=== PATIENT | female | born 1960 | race Caucasian/White ===

== ENCOUNTER 2018-05-25 09:40 | Inpatient (IN) | payer MEDICAID ==
[2018-05-18 11:03] LABS: BASOPHILS % (AUTO) 0.4 % (0-1); EOSINOPHILS # (AUTO) 0.2 X10'3 (0-0.9); EOSINOPHILS % (AUTO) 2.3 % (0-6); LYMPHOCYTES # (AUTO) 1.9 X10'3 (1.1-4.8); LYMPHOCYTES % (AUTO) 23.8 % (21-51); MEAN CORPUSCULAR HEMOGLOBIN 32.6 PG (27.0-31.0); MEAN CORPUSCULAR HGB CONC 34.2 % (33.0-36.5); MEAN CORPUSCULAR VOLUME 95.2 FL (78-98); MONOCYTES # (AUTO) 0.5 X10'3 (0-0.9); MONOCYTES % (AUTO) 6.8 % (2-12); NEUTROPHILS # (AUTO) 5.3 X10'3 (1.8-7.7); NEUTROPHILS % (AUTO) 66.7 % (42-75); PRE OP HEMATOCRIT 40.5 % (35.0-45.0); PRE OP HEMOGLOBIN 13.8 g/dL (12.0-16.0); PRE OP PLATELET COUNT 299 X10'3 (140-440); RED BLOOD COUNT 4.25 X10'6 (4.20-5.60); RED CELL DISTRIBUTION WIDTH 13.7 % (11.5-14.5)
[2018-05-18 11:03] LABS: CLARITY,URINE SLIGHTLY CLOUDY (Clear); COLOR,URINE YELLOW (Yellow); GLUCOSE, URINE NEGATIVE (Neg); KETONES,URINE NEGATIVE (Neg); LEUKOCYTE ESTERASE ,URINE MODERATE (Neg); NITRITES, URINE POSITIVE (Neg); OCCULT BLOOD,URINE LARGE (Neg); PROTEIN,URINE NEGATIVE (Neg); UROBILINOGEN,URINE 0.2 E.U/dL (0.2-1.0)
[2018-05-18 11:06] LABS: UA COLLECTION TYPE OTHER
[2018-05-18 11:08] LABS: WBC,URINE 50-100 /HPF (0-4)
[2018-05-18 11:09] LABS: BACTERIA,URINE 4+ /HPF (Neg); SQUAMOUS EPITHELIAL CELL,UR FEW /LPF (FEW)
[2018-05-18 11:15] LABS: ALBUMIN/GLOBULIN RATIO 1.2 (1.1-1.5); ALKALINE PHOSPHATASE 130 IU/L (46-116); BLOOD UREA NITROGEN 24 MG/DL (7-18); BUN/CREATININE RATIO 31.2 (6.6-38.0); CALCIUM 9.2 MG/DL (8.5-10.1); CHLORIDE 106 MMOL/L (99-107); CREATININE 0.77 MG/DL (0.40-0.90); PRE OP ALT 25 U/L (30-65); PRE OP ANION GAP 7 (8-16); PRE OP AST 17 U/L (10-37); PRE OP BILIRUB, TOTAL 0.3 MG/DL (0.0-1.0); PRE OP GLUCOSE 90 MG/DL (70-104); PRE OP POTASSIUM 4.4 MMOL/L (3.4-5.1); PRE OP SODIUM 143 MMOL/L (135-145); TOTAL CARBON DIOXIDE 30.2 MMOL/L (24-32); TOTAL PROTEIN 7.3 G/DL (6.4-8.2); eGFR 77 ML/MIN
[~2018-05-25] VITALS: Ht 157.5 cm; Wt 87.5 kg
[2018-05-25] VITALS (18 sets, daily range): BP systolic 88–127; BP diastolic 50–91
[2018-05-25] MEDS: potassium cl 20mEq in 1/2 NS 1,000 ML IV SCH ×2 (07:16→15:16)
[2018-05-25] MEDS: citalopram 20mg tablet PO SCH (08:00)
[2018-05-25] MEDS: morphine ER 15mg tablet PO SCH ×2 (08:00→20:07)
[2018-05-25] MEDS: acetaminophen 325mg tablet PO SCH ×3 (08:00→20:08)
[2018-05-25] MEDS: baclofen 10mg tablet PO SCH ×3 (08:00→20:07)
[2018-05-25] MEDS: multivitamins, therapeutics tablet PO SCH (08:00)
[2018-05-25] MEDS: gabapentin 300mg capsule PO SCH ×3 (08:00→20:07)
[~2018-05-25 09:40] MED LIST: ATOR20TA PO; BACL20TA11 PO; Cefazolin 2GM/50ML dext iso,osmotic IVPB IV ONE; ENAL5TAB PO; ESCI20TA38 PO; HYDROmorphone 1 mg/ml syringe IV PRN; MELO-102 PO; OXYC10TA47 PO; VANCOMYCIN INJ 1000 MG in NORMAL SALINE 250ml IV.SOLN IV ONE; ZOLP10TA5 PO; ZOLPIDEM TARTRATE 5 MG PO SCH; acetaminophen 325mg tablet PO ONE; acetaminophen 325mg tablet PO PRN; bisacodyl 10mg suppository rectal RC PRN; celeCOXIB 100mg capsule PO ONE; diphenhydrAMINE 25mg capsule PO PRN; famotidine 20mg tablet PO ONE; gabapentin 300mg capsule PO ONE; magnesium hydroxide 30ml (MOM) UD suspension PO PRN; metoclopramide 5 mg/ml inj IV ONE; ondansetron/PF 4mg/2ml inj IV PRN; oxyCODONE IR 5mg (immed. release) tablet PO PRN; oxyCODONE SR 10mg (sust. release) tab PO ONE; ringers solution, lacted 1,000 ML IV SCH
[2018-05-25] MEDS ORDERED: fentaNYL/PF 50MCG/1 ML 2ML syringe ONE (13:29)
[2018-05-25] MEDS ORDERED: MIDAZolam 5mg/5ml vial ONE (13:29)
[2018-05-25] MEDS ORDERED: morphine sulfate /PF 0.5 MG/ML 10mL ampul ONE (13:29)
[2018-05-25] MEDS ORDERED: tetracaine 1% (10mg/ml) pres. free inj. ONE (13:30)
[2018-05-25] MEDS ORDERED: tranexamic acid inj. 1,000 MG in normal saline 100ml IV soln 90 ML IV ONE (14:00)
[2018-05-25] MEDS ORDERED: ROPIVAcaine inj 250 MG, epiNEPHrine inj 0.5 MG, CloNIDine/PF inj 80 MCG in normal salin... SQ ONE (14:05)
[2018-05-25] MEDS ORDERED: ketorolac trometh. 30mg/ml inj. ONE (14:45)
[2018-05-25] MEDS ORDERED: vancomycin 1,000mg inj ONE (14:46)
[2018-05-25] MEDS ORDERED: ePHEDrine 50MG/ML INJ. ONE (15:02)
[2018-05-25] MEDS ORDERED: diphenhydrAMINE 50 mg/ml inj ONE (15:02)
[2018-05-25] MEDS ORDERED: phenylephrine 10mg/ml inj. ONE (15:02)
[2018-05-25] MEDS ORDERED: LIDOcaine 1%/PF 5ML 10 MG/ML VIAL ONE (15:02)
[2018-05-25] MEDS ORDERED: propofol inj 20 ML IV ONE (15:02)
[2018-05-25] MEDS ORDERED: diphenhydrAMINE 50 mg/ml inj IV PRN (15:20)
[2018-05-25] MEDS ORDERED: meperidine/PF 25mg/ml syringe IV PRN ×3 (15:20)
[2018-05-25] MEDS ORDERED: naloxone 2mg/2ml inj 1.7 MG in normal saline 500ml IV soln 500 ML IV PRN (15:20)
[2018-05-25] MEDS ORDERED: ondansetron/PF 4mg/2ml inj IV PRN ×2 (15:20)
[2018-05-25] MEDS ORDERED: proCHLORperazine 10 MG/2 ml inj IV PRN (15:20)
[2018-05-25] MEDS ORDERED: morphine 4 MG/ML inj SYRINge IV PRN ×3 (15:20→16:17)
[2018-05-25] MEDS ORDERED: ringers solution, lacted 1,000 ML IV SCH (15:20)
[2018-05-25] MEDS ORDERED: morphine 2 MG/ML inj. syringe IV PRN (16:16)
[2018-05-25] MEDS: atorvastatin 20mg tablet PO SCH (20:07)
[2018-05-25] MEDS: sennosides 8.6mg tablet PO SCH (20:07)
[2018-05-25] MEDS: ascorbic acid 500mg tablet PO SCH (20:07)
[2018-05-25] MEDS: zolpidem 5mg tablet PO PRN (21:10)
[2018-05-25] MEDS: cefazolin/dext.iso 2gm/50ml 50 ML IV SCH (21:11)
[2018-05-26 02:00] VITALS: BP 91/61
[2018-05-26] MEDS: cefazolin/dext.iso 2gm/50ml 50 ML IV SCH (02:00)
[2018-05-26] MEDS: acetaminophen 325mg tablet PO SCH ×4 (02:01→19:52)
[2018-05-26] MEDS: oxyCODONE IR 5mg (immed. release) tablet PO PRN ×5 (02:04→21:29)
[2018-05-26] MEDS: baclofen 10mg tablet PO SCH ×4 (02:04→19:51)
[2018-05-26] MEDS: potassium cl 20mEq in 1/2 NS 1,000 ML IV SCH ×4 (02:16→23:16)
[2018-05-26 06:00] VITALS: BP 94/59
[2018-05-26 06:57] LABS: BASOPHILS % (AUTO) 0.4 % (0-1); EOSINOPHILS # (AUTO) 0.2 X10'3 (0-0.9); EOSINOPHILS % (AUTO) 3.4 % (0-6); HEMATOCRIT 30.4 % (35.0-45.0); HEMOGLOBIN 10.6 g/dl (12.0-16.0); LYMPHOCYTES # (AUTO) 1.3 X10'3 (1.1-4.8); LYMPHOCYTES % (AUTO) 20.5 % (21-51); MEAN CORPUSCULAR HEMOGLOBIN 32.9 PG (27.0-31.0); MEAN CORPUSCULAR HGB CONC 34.9 % (33.0-36.5); MEAN CORPUSCULAR VOLUME 94.4 FL (78-98); MEAN PLATELET VOLUME 8.5 FL (7.4-10.4); MONOCYTES # (AUTO) 0.6 X10'3 (0-0.9); NEUTROPHILS # (AUTO) 4.3 X10'3 (1.8-7.7); NEUTROPHILS % (AUTO) 66.7 % (42-75); PLATELET COUNT 211 X10'3 (140-440); RED BLOOD COUNT 3.22 X10'6 (4.20-5.60); RED CELL DISTRIBUTION WIDTH 12.7 % (11.5-14.5); WHITE BLOOD COUNT 6.4 X10'3 (4.5-11.0)
[2018-05-26 07:16] LABS: ANION GAP 8 (8-16); CHLORIDE 110 MMOL/L (99-107); POTASSIUM 4.1 MMOL/L (3.5-5.1); SODIUM 146 MMOL/L (135-145); TOTAL CARBON DIOXIDE 27.9 MMOL/L (24-32)
[2018-05-26] MEDS: aspirin 325mg tablet PO SCH (07:41)
[2018-05-26] MEDS: citalopram 20mg tablet PO SCH (07:41)
[2018-05-26] MEDS: morphine ER 15mg tablet PO SCH ×2 (07:42→19:51)
[2018-05-26] MEDS: ascorbic acid 500mg tablet PO SCH ×2 (07:43→19:51)
[2018-05-26] MEDS: multivitamins, therapeutics tablet PO SCH (07:43)
[2018-05-26] MEDS: gabapentin 300mg capsule PO SCH ×3 (07:43→19:51)
[2018-05-26] MEDS: lisinopril 5mg tablet PO SCH (07:57)
[2018-05-26 10:00] VITALS: BP 97/63
[2018-05-26 18:03] VITALS: BP 114/71
[2018-05-26] MEDS: atorvastatin 20mg tablet PO SCH (19:51)
[2018-05-26] MEDS: sennosides 8.6mg tablet PO SCH (19:52)
[2018-05-26] MEDS: zolpidem 5mg tablet PO PRN (21:29)
[2018-05-26 22:00] VITALS: BP 95/57
[2018-05-27] MEDS: oxyCODONE IR 5mg (immed. release) tablet PO PRN ×4 (02:25→13:47)
[2018-05-27] MEDS: baclofen 10mg tablet PO SCH ×4 (02:25→20:15)
[2018-05-27] MEDS: acetaminophen 325mg tablet PO SCH (02:25)
[2018-05-27 06:00] VITALS: BP 99/58
[2018-05-27 06:00] LABS: BASOPHILS % (AUTO) 0 % (0-1); EOSINOPHILS # (AUTO) 0.3 X10'3 (0-0.9); EOSINOPHILS % (AUTO) 3.4 % (0-6); HEMATOCRIT 29.2 % (35.0-45.0); LYMPHOCYTES # (AUTO) 1.3 X10'3 (1.1-4.8); LYMPHOCYTES % (AUTO) 12.3 % (21-51); MEAN CORPUSCULAR HEMOGLOBIN 32.5 PG (27.0-31.0); MEAN CORPUSCULAR HGB CONC 34.4 % (33.0-36.5); MEAN CORPUSCULAR VOLUME 94.2 FL (78-98); MONOCYTES # (AUTO) 0.9 X10'3 (0-0.9); MONOCYTES % (AUTO) 8.5 % (2-12); NEUTROPHILS # (AUTO) 7.8 X10'3 (1.8-7.7); NEUTROPHILS % (AUTO) 75.8 % (42-75); PLATELET COUNT 218 X10'3 (140-440); RED BLOOD COUNT 3.09 X10'6 (4.20-5.60); RED CELL DISTRIBUTION WIDTH 12.9 % (11.5-14.5); WHITE BLOOD COUNT 10.3 X10'3 (4.5-11.0)
[2018-05-27] MEDS: lisinopril 5mg tablet PO SCH (07:47)
[2018-05-27] MEDS: citalopram 20mg tablet PO SCH (07:50)
[2018-05-27] MEDS: aspirin 325mg tablet PO SCH (07:50)
[2018-05-27] MEDS: morphine ER 15mg tablet PO SCH ×2 (07:50→20:15)
[2018-05-27] MEDS: multivitamins, therapeutics tablet PO SCH (07:50)
[2018-05-27] MEDS: ascorbic acid 500mg tablet PO SCH ×2 (07:50→20:15)
[2018-05-27] MEDS: gabapentin 300mg capsule PO SCH ×3 (07:50→20:15)
[2018-05-27 10:00] VITALS: BP 129/75
[2018-05-27] MEDS ORDERED: oxyCODONE/APAP 10/325mg tablet PO PRN (15:50)
[2018-05-27] MEDS: oxyCODONE/APAP 10/325mg tablet PO PRN ×2 (17:03→23:33)
[2018-05-27 18:00] VITALS: BP 139/71
[2018-05-27] MEDS: sennosides 8.6mg tablet PO SCH (20:14)
[2018-05-27] MEDS: atorvastatin 20mg tablet PO SCH (20:14)
[2018-05-27] MEDS: zolpidem 5mg tablet PO PRN (20:18)
[2018-05-27 22:00] VITALS: BP 113/59
[2018-05-28] MEDS: baclofen 10mg tablet PO SCH ×4 (02:13→20:58)
[2018-05-28] MEDS: oxyCODONE/APAP 10/325mg tablet PO PRN ×4 (03:21→16:48)
[2018-05-28 06:00] VITALS: BP 101/64
[2018-05-28] MEDS: citalopram 20mg tablet PO SCH (07:15)
[2018-05-28] MEDS: gabapentin 300mg capsule PO SCH ×3 (07:15→20:57)
[2018-05-28] MEDS: multivitamins, therapeutics tablet PO SCH (07:15)
[2018-05-28] MEDS: morphine ER 15mg tablet PO SCH ×2 (07:15→21:00)
[2018-05-28] MEDS: ascorbic acid 500mg tablet PO SCH ×2 (07:16→20:58)
[2018-05-28] MEDS: lisinopril 5mg tablet PO SCH (08:00)
[2018-05-28 08:09] LABS: WHITE BLOOD COUNT 10.2 X10'3 (4.5-11.0)
[2018-05-28 08:10] LABS: BASOPHILS % (AUTO) 0.4 % (0-1); EOSINOPHILS # (AUTO) 0.5 X10'3 (0-0.9); EOSINOPHILS % (AUTO) 4.9 % (0-6); HEMATOCRIT 31.5 % (35.0-45.0); HEMOGLOBIN 10.8 g/dl (12.0-16.0); LYMPHOCYTES % (AUTO) 19.9 % (21-51); MEAN CORPUSCULAR HEMOGLOBIN 32.6 PG (27.0-31.0); MEAN CORPUSCULAR HGB CONC 34.1 % (33.0-36.5); MEAN CORPUSCULAR VOLUME 95.5 FL (78-98); MEAN PLATELET VOLUME 8.2 FL (7.4-10.4); MONOCYTES # (AUTO) 0.9 X10'3 (0-0.9); MONOCYTES % (AUTO) 8.5 % (2-12); NEUTROPHILS # (AUTO) 6.8 X10'3 (1.8-7.7); NEUTROPHILS % (AUTO) 66.3 % (42-75); PLATELET COUNT 242 X10'3 (140-440); RED CELL DISTRIBUTION WIDTH 12.9 % (11.5-14.5)
[2018-05-28 10:00] VITALS: BP 97/60
[2018-05-28] MEDS: aspirin 325mg tablet PO SCH (12:22)
[2018-05-28 18:00] VITALS: BP 102/58
[2018-05-28] MEDS: atorvastatin 20mg tablet PO SCH (20:58)
[2018-05-28] MEDS: sennosides 8.6mg tablet PO SCH (20:58)
[2018-05-28] MEDS: zolpidem 5mg tablet PO PRN (21:48)
[2018-05-28 22:00] VITALS: BP 109/61
[2018-05-29] MEDS: oxyCODONE/APAP 10/325mg tablet PO PRN ×3 (00:21→10:31)
[2018-05-29] MEDS: baclofen 10mg tablet PO SCH ×2 (01:59→07:35)
[2018-05-29 06:00] VITALS: BP 103/64
[2018-05-29] MEDS: citalopram 20mg tablet PO SCH (07:35)
[2018-05-29] MEDS: lisinopril 5mg tablet PO SCH (07:36)
[2018-05-29] MEDS: multivitamins, therapeutics tablet PO SCH (07:36)
[2018-05-29] MEDS: aspirin 325mg tablet PO SCH (07:36)
[2018-05-29] MEDS: morphine ER 15mg tablet PO SCH (07:36)
[2018-05-29] MEDS: ascorbic acid 500mg tablet PO SCH (07:36)
[2018-05-29] MEDS: gabapentin 300mg capsule PO SCH (07:36)
== END 2018-05-29 11:10 | DRG 301 ==
LOC: PAS IN 11:19 → EDSTATUS 15:30 → ORTHO 4S 17:00
PROVIDERS: ADMIT Orthopaedic Surgery; ATTEND Orthopaedic Surgery
PROC: 0SR906Z Replacement of Right Hip Joint with Oxidized Zirconium on Polyethylene Synthetic Substitute, Open Approach (ICD-10-PCS; principal; 2018-05-25 13:34)
DX: M16.11 Unilateral primary osteoarthritis, right hip (principal); E66.9 Obesity, unspecified; I10 Essential (primary) hypertension; E78.5 Hyperlipidemia, unspecified; N39.0 Urinary tract infection, site not specified; B95.2 Enterococcus as the cause of diseases classified elsewhere; F32.9 Major depressive disorder, single episode, unspecified; D62 Acute posthemorrhagic anemia; Z88.6 Allergy status to analgesic agent; Z79.899 Other long term (current) drug therapy; Z79.82 Long term (current) use of aspirin; Z68.35 Body mass index [BMI] 35.0-35.9, adult
CPT/HCPCS: 36415; 71046; 72170; 80051; 80053; 81001; 85025; 85610; 85730; 86885; 86900; 86901; 87070; 87077; 87088; 87186; 97110; 97116; 97162; 97530; A4615; A6258; A7000; A9272; C1758; C1776; J0171; J0690; J0735; J1170; J1200; J1885; J2001; J2250; J2270; J2274; J2370; J2704; J2765; J2795; J3010; J3370; J7030; J7120; Q0163

== ENCOUNTER 2019-08-31 22:03 | Emergency (ER) | payer MEDICAID ==
[~2019-08-31] VITALS: Ht 157.5 cm; Wt 99.8 kg
[~2019-08-31 22:03] MED LIST changes: -Cefazolin 2GM/50ML dext iso,osmotic IVPB IV ONE; -HYDROmorphone 1 mg/ml syringe IV PRN; -VANCOMYCIN INJ 1000 MG in NORMAL SALINE 250ml IV.SOLN IV ONE; -ZOLPIDEM TARTRATE 5 MG PO SCH; -acetaminophen 325mg tablet PO ONE; -acetaminophen 325mg tablet PO PRN; -bisacodyl 10mg suppository rectal RC PRN; -celeCOXIB 100mg capsule PO ONE; -diphenhydrAMINE 25mg capsule PO PRN; -famotidine 20mg tablet PO ONE; -gabapentin 300mg capsule PO ONE; -magnesium hydroxide 30ml (MOM) UD suspension PO PRN; -metoclopramide 5 mg/ml inj IV ONE; -ondansetron/PF 4mg/2ml inj IV PRN; -oxyCODONE IR 5mg (immed. release) tablet PO PRN; -oxyCODONE SR 10mg (sust. release) tab PO ONE; -ringers solution, lacted 1,000 ML IV SCH
[2019-08-31] MEDS ORDERED: ONDA8TAB6 PO (22:42)
[2019-08-31] MEDS ORDERED: SENN-162 PO (22:42)
[2019-08-31] MEDS ORDERED: GABA-532 PO (22:42)
[2019-08-31] MEDS ORDERED: ASPI-1264 PO (22:42)
[2019-08-31] MEDS ORDERED: ondansetron 4mg rapidly disintigrating tab PO ONE (22:50)
[2019-09-01 00:38] VITALS: BP 107/68
== END 2019-09-01 00:42 | disposition home or self-care (01) ==
LOC: ER 22:04
DX: R20.0 Anesthesia of skin (principal); T43.215A Adverse effect of selective serotonin and norepinephrine reuptake inhibitors, initial encounter; T50.995A Adverse effect of other drugs, medicaments and biological substances, initial encounter; R11.0 Nausea; Y92.89 Other specified places as the place of occurrence of the external cause; Z88.5 Allergy status to narcotic agent; Z79.82 Long term (current) use of aspirin; Z79.899 Other long term (current) drug therapy
CPT/HCPCS: 99282

== ENCOUNTER 2023-02-08 16:06 | Emergency (ER) | payer MEDICAID ==
[~2023-02-08] VITALS: Ht 162.6 cm; Wt 93.2 kg
[~2023-02-08 16:06] MED LIST changes: +ASPI-1264 PO; +ENAL-76 PO; -ENAL5TAB PO; -ESCI20TA38 PO; +ESCI20TA39 PO; +GABA-532 PO; +ONDA8TAB6 PO; +SENN-263 PO
[2023-02-08 17:01] LABS: CLARITY,URINE SLIGHTLY CLOUDY (Clear); COLOR,URINE YELLOW (Yellow); GLUCOSE, URINE NEGATIVE (Neg); KETONES,URINE NEGATIVE (Neg); LEUKOCYTE ESTERASE ,URINE NEGATIVE (Neg); NITRITES, URINE NEGATIVE (Neg); OCCULT BLOOD,URINE SMALL (Neg); PROTEIN,URINE NEGATIVE (Neg); UROBILINOGEN,URINE 0.2 E.U/dL (0.2-1.0)
[2023-02-08 17:03] LABS: UA COLLECTION TYPE CLN CATCH MIDSTREAM
[2023-02-08 17:08] LABS: URINE AMPHETAMINE SCREEN NEGATIVE (Neg); URINE BARBITUATE SCREEN NEGATIVE (Neg); URINE BENZODIAZEPINES SCREEN NEGATIVE (Neg); URINE CANNABINOID SCREEN POSITIVE (Neg); URINE COCAINE SCREEN NEGATIVE (Neg); URINE METHADONE SCREEN NEGATIVE (Neg); URINE OPIATE SCREEN POSITIVE (Neg); URINE PHENCYCLIDINE SCREEN NEGATIVE (Neg)
[2023-02-08 17:09] LABS: MUCUS STRANDS MODERATE /LPF (Neg); SQUAMOUS EPITHELIAL CELL,UR FEW /LPF (FEW)
[2023-02-08 17:13] LABS: BACTERIA,URINE FEW /HPF (Neg); WBC,URINE 0-4 /HPF (0-4)
[2023-02-08 17:24] LABS: BASOPHILS % (AUTO) 0.4 % (0-1); EOSINOPHILS # (AUTO) 0.3 X10'3 (0-0.9); EOSINOPHILS % (AUTO) 2.8 % (0-6); HEMATOCRIT 38.6 % (35.0-45.0); HEMOGLOBIN 13.3 g/dl (12.0-16.0); LYMPHOCYTES # (AUTO) 1.9 X10'3 (1.1-4.8); LYMPHOCYTES % (AUTO) 21.1 % (21-51); MEAN CORPUSCULAR HEMOGLOBIN 32.8 PG (27.0-31.0); MEAN CORPUSCULAR HGB CONC 34.5 g/dL (33.0-36.5); MEAN PLATELET VOLUME 7.7 FL (7.4-10.4); MONOCYTES # (AUTO) 0.6 X10'3 (0-0.9); MONOCYTES % (AUTO) 7.1 % (2-12); NEUTROPHILS # (AUTO) 6.2 X10'3 (1.8-7.7); NEUTROPHILS % (AUTO) 68.6 % (42-75); PLATELET COUNT 319 X10'3 (140-440); RED BLOOD COUNT 4.07 X10'6 (4.20-5.60); RED CELL DISTRIBUTION WIDTH 13.4 % (11.5-14.5)
[2023-02-08 17:25] LABS: ALANINE AMINOTRANSFERASE 85 U/L (12-78); ALBUMIN 3.7 G/DL (3.4-5.0); ALBUMIN/GLOBULIN RATIO 1.3 (1.1-1.5); ALKALINE PHOSPHATASE 119 IU/L (46-116); ANION GAP 8 (8-16); ASPARTATE AMINO TRANSFERASE 49 U/L (10-37); BILIRUBIN,TOTAL 0.5 MG/DL (0.1-1.0); BLOOD UREA NITROGEN 21 MG/DL (7-18); BUN/CREATININE RATIO 27.3 (10.0-20.0); CALCIUM 8.7 MG/DL (8.5-10.1); CHLORIDE 107 MMOL/L (99-107); CREATININE 0.77 MG/DL (0.40-0.90); GLUCOSE 102 MG/DL (70-104); POTASSIUM 3.7 MMOL/L (3.5-5.1); SODIUM 143 MMOL/L (135-145); TOTAL CARBON DIOXIDE 28.4 MMOL/L (24-32); TOTAL PROTEIN 6.5 G/DL (6.4-8.2); eGFR 75 ML/MIN
[2023-02-08 17:38] LABS: ETHANOL < 0.010 GM/DL (0.0-0.010)
[2023-02-08 19:06] VITALS: BP 155/85
== END 2023-02-08 19:08 | disposition home or self-care (01) ==
LOC: ER 16:06
DX: R41.0 Disorientation, unspecified (principal); M79.89 Other specified soft tissue disorders; Z88.5 Allergy status to narcotic agent; Z79.899 Other long term (current) drug therapy; Z79.82 Long term (current) use of aspirin; Z79.1 Long term (current) use of non-steroidal anti-inflammatories (NSAID); Z79.2 Long term (current) use of antibiotics
CPT/HCPCS: 36415; 70450; 71045; 80053; 80305; 80320; 81001; 82140; 84443; 84484; 85025; 93005; 99285